=== PATIENT | female | born 2000 | race Caucasian/White ===

== ENCOUNTER 2018-10-04 16:06 | Emergency (ER) | payer OTHER ==
[~2018-10-04] VITALS: Ht 170.2 cm; Wt 73.6 kg
[2018-10-04] MEDS ORDERED: BUTACAP78 PO (16:17)
[2018-10-04 17:29] LABS: BASO % 0.3 % (0.0-1.0); EOS # 0.1 10^3/uL (0.0-0.50); EOS % 0.7 % (0.0-3.0); HEMATOCRIT 35.1 % (36.0-47.0); HEMOGLOBIN 11.2 g/dl (12.0-15.5); LYMPH # 1.6 10^3/uL (1.5-6.5); LYMPH % 21.8 % (24.0-44.0); MEAN CORPUSCULAR HGB CONC 31.9 g/dl (32.0-36.5); MEAN CORPUSCULAR VOLUME 75.3 fl (80.0-96.0); MONO # 0.9 10^3/uL (0.0-0.8); NEUTROPHILS # 4.7 10^3/uL (1.8-7.7); NEUTROPHILS % 64.8 % (36.0-66.0); PLATELET COUNT, AUTOMATED 198 10^3/uL (150-450); RED BLOOD COUNT 4.66 10^6/uL (4.00-5.40); WHITE BLOOD COUNT 7.3 10^3/uL (4.0-10.0)
[2018-10-04 17:52] LABS: ALBUMIN 2.3 GM/DL (3.2-5.2); ALT/SGPT 18 U/L (12-78); BILIRUBIN,DIRECT < 0.1 MG/DL (0.0-0.2); BILIRUBIN,TOTAL 0.2 MG/DL (0.2-1.0); BLOOD UREA NITROGEN 5 MG/DL (7-18); CARBON DIOXIDE LEVEL 20 MEQ/L (21-32); CHLORIDE LEVEL 112 MEQ/L (98-107); CREATININE FOR GFR 0.67 MG/DL (0.55-1.30); GLUCOSE, FASTING 67 MG/DL (70-100); MAGNESIUM LEVEL 1.8 MG/DL (1.8-2.4); SODIUM LEVEL 141 MEQ/L (136-145); TOTAL PROTEIN 6.4 GM/DL (6.4-8.2)
[2018-10-04 18:47] LABS: TOTAL PROTEIN,RANDOM URINE 34.4 MG/DL (0.0-12.0)
[2018-10-04] MEDS ORDERED: REGL5TAB2 PO (19:19)
[2018-10-04 19:59] VITALS: BP 159/87
--- NOTE | 2018-10-05 07:06 | ECGEPIP ---
Stationary ECG Study [facility] - ED Test Date: 2018-10-04 Pat Name: JOSE RAMON STANLEY Department: Room: - Gender: F Patient Support Associate: : 2000 Requested By: BLAIR MURGUIA Order Number: [id number] Reading MD: Kevin Arevalo Measurements Intervals [place] Rate: 87 P: 3 UT: 141 QRS: 46 QRSD: 90 T: 11 QT: 327 QTc: 395 Interpretive Statements SINUS RHYTHM NSTTW ABNORMALITIES NO PRIORS FOR COMPARISON Electronically Signed On 10-05-2018 7:05:48 EST by Kevin Arevalo
== END 2018-10-04 20:11 | disposition left against medical advice (07) ==
LOC: M ED 16:06
DX: O14.93 Unspecified pre-eclampsia, third trimester (principal); Z3A.38 38 weeks gestation of pregnancy; O99.353 Diseases of the nervous system complicating pregnancy, third trimester; G43.909 Migraine, unspecified, not intractable, without status migrainosus; Z88.8 Allergy status to other drugs, medicaments and biological substances

== ENCOUNTER 2018-12-13 09:46 | Emergency (ER) | payer OTHER ==
[~2018-12-13] VITALS: Ht 172.7 cm; Wt 116.7 kg
[~2018-12-13 09:46] MED LIST: BUTACAP78 PO; REGL5TAB2 PO
[2018-12-13] MEDS ORDERED: BIRTH CONTROL (10:00)
[2018-12-13] MEDS ORDERED: ALBUTEROL SULFATE 2.5 MG/0.5 ML INH NEB SOLN NEB ONE (10:45)
--- NOTE | 2018-12-13 11:44 | REP ---
Chest two views HISTORY: Shortness of breath Comparison: None The lungs are clear. The heart is normal in size. The pulmonary vasculature is normal in appearance. The bony structure is intact. IMPRESSION: No acute disease. Electronically Signed by Polo Boland MD 12/13/2018 11:36 A
[2018-12-13] MEDS ORDERED: ISOVUE-370 76% 100ML VIAL (Q9967) As Ordered ONE (11:49)
--- NOTE | 2018-12-13 12:44 | REP ---
CT pulmonary angiogram: With IV contrast. History: Shortness of breath. Comparison studies: Comparison is made with today's chest x-ray. Contrast dose: 75 ML of Isovue [address] technique: Helical scanning is acquired and overlapping 1.5 mm and contiguous 3 mm axial images are reformatted. In addition, maximum intensity projection and multiplanar re-formation images are generated in sagittal and coronal imaging projections. CT pulmonary angiographic findings: There is good opacification of the pulmonary arterial tree and there is no CT evidence of pulmonary embolism. Thoracic aorta enhances homogeneously and is normal in course and caliber. No pleural or pericardial effusion is seen. No hilar or mediastinal mass or adenopathy is observed. There is an accessory splenule at the anteromedial aspect of the spleen. No no right adrenal abnormality is seen. Left adrenal is not included in the imaging field of view. The lung bear are clear. No pulmonary nodule or mass lesion is seen. No infiltrate is noted. No acute bony abnormality is seen Impression: No CT evidence of pulmonary embolus. No active cardiopulmonary disease. Electronically Signed by Erickson Parisi MD 12/13/2018 12:36 P
[2018-12-13] MEDS ORDERED: ALBU17IN2 INH (12:56)
[2018-12-13 13:12] VITALS: BP 137/83
== END 2018-12-13 13:20 | disposition home or self-care (01) ==
LOC: M ED 09:46
DX: R06.02 Shortness of breath (principal); Z87.09 Personal history of other diseases of the respiratory system; Z88.8 Allergy status to other drugs, medicaments and biological substances
CPT/HCPCS: 36415; 71046; 71275; 85379; 94640; 99284; Q9967